=== PATIENT | female | born 1975 | race Caucasian/White ===

== ENCOUNTER 2022-06-21 15:39 | Emergency (ER) | payer OTHER ==
[2022-06-21 15:51] VITALS: BP 109/80
[2022-06-21 16:00] VITALS: BP 112/78
[2022-06-21 16:30] VITALS: BP 127/86
[2022-06-21] MEDS ORDERED: METHOCARBAMOL500 MG PO (16:43)
[2022-06-21] MEDS ORDERED: NAPROXEN500 MG PO (16:43)
[2022-06-21 17:00] VITALS: BP 127/86
== END 2022-06-21 17:11 | disposition home or self-care (01) ==
LOC: ED 15:39
DX: S20.212A Contusion of left front wall of thorax, initial encounter (principal); I10 Essential (primary) hypertension; F17.200 Nicotine dependence, unspecified, uncomplicated; W01.0XXA Fall on same level from slipping, tripping and stumbling without subsequent striking against object, initial encounter